=== PATIENT | male | born 1940 | race Caucasian/White ===

== ENCOUNTER 2016-04-20 07:11 | Day surgery (SDC) | payer BC, MEDICARE ==
[~2016-04-20 07:11] MED LIST: AMLO5TAB PO; ASPIRIN EC325 MG PO; COREG 6.25MG6.25 MG PO; EFFIENT10 MG PO; HABITROL21 MG/24 H TD; LIPITOR40 MG PO; LISINOPRIL 5MG T5 MG PO; LORTAB 5/3251 TAB PO; LOSARTAN POTASS25 MG PO; XELODA500 MG PO
--- NOTE | 2016-04-20 08:28 | Operative Note ---
Endoscopy Report Date: 04/20/16 Preoperative diagnosis: History of colon cancer Procedure Type of procedure: Total colonoscopy to cecum with polypectomy and biopsies Indications: Patient is a 75-year-old white male who had undergone colonoscopy in December 2014 for workup of LEFT sided abdominal pain. 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 Of note, at the time of his initial colonoscopy he was unable to have evaluation of the RIGHT colon and had a prior to resection. Plan was made for surveillance colonoscopy. Consent was obtained the patient was taken to same-day surgery endoscopy procedure room. He was positioned in a lateral decubitus position. Adequate intravenous sedation was achieved with titration of 9 mg Versed and 150 g fentanyl for the duration of the procedure. Variable stiffness Olympus colonoscope was inserted via the anus and advanced to the cecum without significant difficulty. Colonic preparation was good. Ileocecal valve and appendiceal orifice were clearly identified. Within the RIGHT colon there were several arterial venous malformations. A couple of these which appeared somewhat irregular were biopsied with hot biopsy forceps. In the descending and sigmoid colon there was moderate significant diverticulosis. None of this. Be actively inflamed. There is a diminutive polyp in the sigmoid colon removed with hot biopsy forceps. There is possibly the beginnings of a polyp in the distal sigmoid colon which was biopsied and removed with cold biopsy forceps. Retroflexion within the rectum revealed internal hemorrhoids which were nonbleeding. Colonoscope was withdrawn. 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 Likely plan for repeat colonoscopy in one to 2 years pending the pathology. If the biopsies of the possible AVM in the RIGHT colon have any adenomatous change plan for early repeat colonoscopy. at [id number]
[2016-04-20 13:31] VITALS: BP 94/50
[2016-07-29] MEDS ORDERED: COREG 6.25MG6.25 MG PO (08:21)
[2016-07-29] MEDS ORDERED: LOSARTAN POTASS1 TA1 PO (08:22)
[2016-07-29] MEDS ORDERED: ATORVASTATIN CA20 MG PO (08:22)
[2016-07-29] MEDS ORDERED: AMLODIPINE10 M2 PO (08:22)
== END 2016-04-20 09:20 | disposition home or self-care (01) ==
LOC: SDC 07:11
PROVIDERS: Surgery
PROC: 0DBN8ZX Excision of Sigmoid Colon, Via Natural or Artificial Opening Endoscopic, Diagnostic (ICD-10-PCS; 2016-04-20)
PROC: 0DBN8ZX Excision of Sigmoid Colon, Via Natural or Artificial Opening Endoscopic, Diagnostic (ICD-10-PCS; principal; 2016-04-20 07:30)
DX: Z85.038 Personal history of other malignant neoplasm of large intestine (principal); K57.90 Diverticulosis of intestine, part unspecified, without perforation or abscess without bleeding; D12.5 Benign neoplasm of sigmoid colon